=== PATIENT | male | born 1965 | race Caucasian/White ===

== ENCOUNTER 2017-10-10 19:53 | Emergency (ER) | payer OTHER ==
[~2017-10-10] VITALS: Ht 177.8 cm; Wt 125.2 kg
--- NOTE | 2017-10-10 20:00 | NUR ---
c/o chest pain radiating to back. NAD, VSS, Resp even and unlabored. pt was put on monitor, at .
[2017-10-10] MEDS ORDERED: ONDANSETRON HCL/PF 4 MG/2 ML VIAL ONE (20:26)
[2017-10-10] MEDS ORDERED: MORPHINE SULFATE INJ 4 MG/ML DISP.SYRIN ONE (20:27)
[2017-10-10] MEDS ORDERED: NITROGLYCERIN PACKET 1 GM PACKET ONE (20:27)
[2017-10-10] MEDS ORDERED: MORPHINE SULFATE INJ 2 MG/ML DISP.SYRIN IV ONE (20:30)
[2017-10-10] MEDS ORDERED: NITROGLYCERIN PACKET 1 GM PACKET TD ONE (20:30)
[2017-10-10] MEDS ORDERED: IV NS 0.9% 500 ML BAG IV ONE (20:30)
[2017-10-10] MEDS ORDERED: ONDANSETRON HCL/PF 4 MG/2 ML VIAL IVP ONE (20:30)
--- NOTE | 2017-10-10 20:31 | NUR ---
[facility] TO [facility]FORM [facility] IS HERE IN OUR FACILITY.
[2017-10-10 20:56] LABS: CALCIUM, SERUM 8.6 mg/dL (8.5-10.1); CREATININE 0.9 mg/dL (0.6-1.3); INR 1.01 (0.87-1.13); POTASSIUM 3.7 mmol/L (3.5-5.1)
[2017-10-10 21:05] LABS: TROPONIN I 0.076 ng/mL (0.00-0.056)
[2017-10-10] MEDS ORDERED: IOHEXOL-350 100 ML VIAL IV ONE (21:07)
--- NOTE | 2017-10-10 21:20 | NUR ---
PT BACK FROM [facility]
[2017-10-10 21:29] LABS: BASOPHILS # (AUTO) 0.1 /CMM (0.0-0.2); BASOPHILS % (AUTO) 0.9 % (0.0-2.0); EOSINOPHILS % (AUTO) 1.9 % (0.0-6.0); HEMATOCRIT 48 % (39-51); HEMOGLOBIN 16.9 g/dL (13.5-17.5); LYMPHOCYTES # (AUTO) 2.6 /CMM (0.8-4.8); LYMPHOCYTES % (AUTO) 30.8 % (20.0-44.0); MEAN CORPUSCULAR HEMOGLOBIN 29 PG (26.0-33.0); MEAN CORPUSCULAR HGB CONC 35 g/dl (31.0-36.0); MEAN CORPUSCULAR VOLUME 84 fL (80-96); MONOCYTES # (AUTO) 0.6 /CMM (0.1-1.30); MONOCYTES % (AUTO) 7.7 % (2.0-12.0); NEUTROPHILS # (AUTO) 4.9 /CMM (1.8-8.9); NEUTROPHILS % (AUTO) 58.7 % (43.0-81.0); PLATELET COUNT (AUTO) 151 /CMM (150-450); RDW COEFFICIENT OF VARIATION 12.2 (11.5-15.0); RED BLOOD CELL COUNT(AUTO) 5.76 MIL/uL (4.5-6.0); WHITE BLOOD COUNT (AUTO) 8.4 K/uL (4.3-11.0)
--- NOTE | 2017-10-10 21:39 | NUR ---
CALLED [facility], PRESENTED PT, AWAITING CALL BACK FROM [facility]
--- NOTE | 2017-10-10 22:03 | NUR ---
[facility], AWAITING CALL BACK FROM [facility]
[2017-10-10] MEDS ORDERED: ASPIRIN 81 MG TAB.CHEW ONE (22:26)
[2017-10-10] MEDS ORDERED: ASPIRIN 81 MG TAB.CHEW PO ONE (22:30)
--- NOTE | 2017-10-10 23:03 | NUR ---
RECEIVED CALL FROM [facility], PT ACCEPTED TO [facility] ER BY . NUMBER TO GIVE REPORT IS [phone], [facility] SHOULD ARRIVE BY [phone].
[2017-10-10 23:25] VITALS: BP 127/62
[2017-10-10] MEDS ORDERED: risperiDONE 1 MG TABLET ONE (23:28)
--- NOTE | 2017-10-10 23:32 | NUR ---
REPORT GIVEN TO RADHA SALAS RN.
--- NOTE | 2017-10-10 23:42 | NUR ---
[facility] at bedside for transport to [facility].
== END 2017-10-10 23:53 | disposition short-term general hospital (02) ==
LOC: ER 19:57
DX: I21.4 Non-ST elevation (NSTEMI) myocardial infarction (principal); R07.89 Other chest pain; F32.9 Major depressive disorder, single episode, unspecified; Z88.1 Allergy status to other antibiotic agents; Z88.0 Allergy status to penicillin
CPT/HCPCS: 36415; 71045; 71275; 80048; 84484; 85025; 85730; 93005 ×2; 96374; 96375; 99285; A4606; J2270; J2405; J7040; Q9967; Z7610; J7030

== ENCOUNTER 2018-10-25 00:25 | Emergency (ER) | payer OTHER ==
[~2018-10-25] VITALS: Ht 177.8 cm; Wt 95.3 kg
--- NOTE | 2018-10-25 00:35 | NUR ---
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 DESCRIBED INTERMITTENT AND TINGLING SENSATION, RADIATES TO NECK. 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 PT ALSO C/O HEADACHE. DENIES SOB, N/V/D, DIZZINESS. PT AAOX4. RESPIRATIONS EVEN AND UNLABORED. SKIN WARM AND INTACT. ABLE TO AMBULATE WITH STEADY GAIT. NO ACUTE DISTRESS NOTED AT THIS TIME. 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
--- NOTE | 2018-10-25 00:50 | NUR ---
IV INITIATED RAC 18G. LABS DRAWN FROM SITE. QUALITY ASSURANCE MONITOR AT BEDSIDE FOR COLLECTION. IV INTACT AND PATENT, PLACED ON SALINE LOCK
[2018-10-25 00:53] LABS: BASOPHILS # (AUTO) 0.1 /CMM (0.0-0.2); BASOPHILS % (AUTO) 0.9 % (0.0-2.0); EOSINOPHILS % (AUTO) 1.6 % (0.0-6.0); HEMATOCRIT 46 % (39-51); HEMOGLOBIN 16.3 g/dL (13.5-17.5); LYMPHOCYTES # (AUTO) 2.8 /CMM (0.8-4.8); LYMPHOCYTES % (AUTO) 35.4 % (20.0-44.0); MEAN CORPUSCULAR HGB CONC 36 g/dl (31.0-36.0); MEAN CORPUSCULAR VOLUME 82 fL (80-96); MONOCYTES # (AUTO) 0.7 /CMM (0.1-1.30); MONOCYTES % (AUTO) 9.1 % (2.0-12.0); NEUTROPHILS # (AUTO) 4.2 /CMM (1.8-8.9); PLATELET COUNT (AUTO) 129 /CMM (150-450); RED BLOOD CELL COUNT(AUTO) 5.64 MIL/uL (4.5-6.0); WHITE BLOOD COUNT (AUTO) 7.9 K/uL (4.3-11.0)
[2018-10-25] MEDS ORDERED: METOPROLOL TARTRATE INJ 5 MG/5 ML AMPUL IVP ONE (01:00)
[2018-10-25 01:01] LABS: CALCIUM, SERUM 8.4 mg/dL (8.5-10.1); CARBON DIOXIDE 26 mmol/L (21-32); CHLORIDE 103 mmol/L (98-107); CREATININE 0.8 mg/dL (0.6-1.3); GLUCOSE 165 mg/dL (74-106); POTASSIUM 3.7 mmol/L (3.5-5.1); SODIUM SERUM 138 mmol/L (136-145); UREA NITROGEN, BLOOD 12 mg/dL (7-18)
[2018-10-25] MEDS ORDERED: METOPROLOL TARTRATE INJ 5 MG/5 ML AMPUL ONE (01:09)
[2018-10-25 01:16] VITALS: BP 144/88
--- NOTE | 2018-10-25 02:01 | NUR ---
PT ACCEPTED TO [facility] ER BY DR DANIEL. # FOR REPORT [phone]. ETA FOR [facility] [id number]
--- NOTE | 2018-10-25 02:17 | NUR ---
REPORT GIVEN TO LYNN ALICIA
== END 2018-10-25 03:05 | disposition short-term general hospital (02) ==
LOC: ER 00:26
DX: I25.10 Atherosclerotic heart disease of native coronary artery without angina pectoris (principal); I10 Essential (primary) hypertension; I25.2 Old myocardial infarction; F32.9 Major depressive disorder, single episode, unspecified; Z88.0 Allergy status to penicillin; Z88.1 Allergy status to other antibiotic agents
CPT/HCPCS: 36415; 71045; 80048; 84484; 85025; 93005; 99285; J3490

== ENCOUNTER 2021-08-13 14:13 | Emergency (ER) | payer OTHER ==
[~2021-08-13] VITALS: Ht 177.8 cm; Wt 117.9 kg
--- NOTE | 2021-08-13 14:20 | NUR ---
BIB RA 99 FROM HIS DENTIST OFFICE HE WAS GIVEN A FLOURIDE RINSE AND AFTER FELT DIZZY. PLACED COMFORTABLY IN BED. VITALS CHECKED.
--- NOTE | 2021-08-13 15:05 | NUR ---
CXR DONE AT BEDSIDE
--- NOTE | 2021-08-13 15:15 | NUR ---
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
[2021-08-13 15:23] LABS: BASOPHILS # (AUTO) 0.1 K/uL (0.0-0.2); EOSINOPHILS % (AUTO) 2.6 % (0.0-6.0); HEMATOCRIT 48 % (39-51); HEMOGLOBIN 16.3 g/dL (13.5-17.5); LYMPHOCYTES # (AUTO) 2.4 K/uL (0.8-4.8); MEAN CORPUSCULAR HGB CONC 34 g/dl (31.0-36.0); MEAN CORPUSCULAR VOLUME 82 fL (80-96); MONOCYTES # (AUTO) 0.6 K/uL (0.1-1.30); NEUTROPHILS # (AUTO) 3.8 K/uL (1.8-8.9); NEUTROPHILS % (AUTO) 53.4 % (43.0-81.0); PLATELET COUNT (AUTO) 120 K/uL (150-450); RED BLOOD CELL COUNT(AUTO) 5.81 MIL/uL (4.5-6.0); WHITE BLOOD COUNT (AUTO) 7.1 K/uL (4.3-11.0)
[2021-08-13 15:35] LABS: CALCIUM, SERUM 9.3 mg/dL (8.5-10.1); CARBON DIOXIDE 26 mmol/L (21-32); CHLORIDE 103 mmol/L (98-107); CREATININE 0.8 mg/dL (0.6-1.3); GLUCOSE 105 mg/dL (74-106); POTASSIUM 3.8 mmol/L (3.5-5.1); SODIUM SERUM 136 mmol/L (136-145); UREA NITROGEN, BLOOD 16 mg/dL (7-18)
[2021-08-13 15:47] LABS: ALANINE AMINOTRANSFERASE 79 U/L (12-78); ALBUMIN 4.1 g/dL (3.4-5.0); ALKALINE PHOSPHATASE 76 U/L (46-116); ASPARTATE AMINOTRANSFERASE 42 U/L (15-37); BILIRUBIN,DIRECT 0.3 mg/dL (0.0-0.2); BILIRUBIN,TOTAL 1.3 mg/dL (0.2-1.0); TOTAL PROTEIN, SERUM 7.5 g/dL (6.4-8.2)
--- NOTE | 2021-08-13 16:20 | NUR ---
SPOKE TO PATIENT. HE WOULD RATHER HAVE THE SALINE LOCK IF HE WILL BE RECEIVING IV MEDS. OTHERWISE, SALINE LOCK CAN WAIT.
[2021-08-13 18:33] VITALS: BP 132/79
== END 2021-08-13 18:35 | disposition home or self-care (01) ==
LOC: ER 14:16
DX: R42 Dizziness and giddiness (principal); R11.0 Nausea; I10 Essential (primary) hypertension; I25.2 Old myocardial infarction; E11.9 Type 2 diabetes mellitus without complications; F32.A Depression, unspecified; Z88.8 Allergy status to other drugs, medicaments and biological substances
CPT/HCPCS: 36415; 71045-TC; 80048-TC; 80076-TC; 83880; 84484-TC; 85025-TC

== ENCOUNTER 2021-10-15 19:23 | Emergency (ER) | payer OTHER ==
[~2021-10-15] VITALS: Ht 177.8 cm; Wt 117.9 kg
--- NOTE | 2021-10-15 19:40 | NUR ---
BIBS FOR C/O SCALP LACERATION S/P A METAL PIECE FELL ON HIS HEAD. -HO, PAST TDAP BET 5-10YRS AGO. PLACED COMFORTABLY IN BED. VITALS CHECKED. KAIA CALLEJAS AT BEDSIDE.
[2021-10-15] MEDS ORDERED: ACETAMINOPHEN 325 MG TABLET PO ONE (20:00)
[2021-10-15] MEDS ORDERED: TDAP [DIPH/PERTUSSIS/TET] 0.5 ML VIAL IM ONE ×2 (20:00→20:03)
--- NOTE | 2021-10-15 20:00 | NUR ---
PT RETURNED TO ER BED [address]
[2021-10-15] MEDS ORDERED: ACETAMINOPHEN 325 MG TABLET ONE (20:03)
[2021-10-15] MEDS ORDERED: LIDOCAINE HCL/MPF 1% 30 ML VIAL IJ ONE (20:45)
--- NOTE | 2021-10-15 21:26 | NUR ---
Patient discharged to home in stable condition. Written and verbal after care instructions given. Patient verbalizes understanding of instruction. PT ambulatory with a steady gait
[2021-10-15 21:27] VITALS: BP 144/88
== END 2021-10-15 21:27 | disposition home or self-care (01) ==
LOC: ER 19:24
DX: S01.01XA Laceration without foreign body of scalp, initial encounter (principal); I10 Essential (primary) hypertension; I25.2 Old myocardial infarction; E11.9 Type 2 diabetes mellitus without complications; F32.A Depression, unspecified; Z88.0 Allergy status to penicillin; Z88.1 Allergy status to other antibiotic agents; Z60.2 Problems related to living alone; W20.8XXA Other cause of strike by thrown, projected or falling object, initial encounter; Y93.89 Activity, other specified; Y92.89 Other specified places as the place of occurrence of the external cause; Y99.8 Other external cause status
CPT/HCPCS: 12002; 70450; 90471; 90715; 99284; J3490